=== PATIENT | female | born 1940 | race American Indian/Alaskan Native ===

== ENCOUNTER 2017-06-21 13:16 | Outpatient (CLI) | payer MEDICARE ==
--- NOTE | 2017-06-22 08:19 | XRay Report ---
XRAY LUMBAR SPINE WITH OBLIQUES 5 VIEWS: 06/21/17 13:16:00 CLINICAL: Low back pain. FINDINGS: Normal vertebral body height and alignment. L5-S1 disc space loss with large anterior and posterior osteophytes. L5-S1 endplate sclerosis. The rest of the disc spaces are intact. Smaller anterior osteophytes at L2-3, L3-4 and L4-5. Multilevel facet joint sclerosis. Multilevel neural foraminal narrowing. The pedicles are intact. Extensive calcification of the abdominal aorta. IMPRESSION: Multilevel degenerative disease, worse at L5-S1. Multilevel bilateral facet joint arthropathy and neural foraminal stenosis.
== END 2017-06-21 13:17 | disposition home or self-care (01) ==
LOC: XRAY 13:16
PROVIDERS: ATTEND Family Medicine
DX: M51.37 Other intervertebral disc degeneration, lumbosacral region (principal); M12.88 Other specific arthropathies, not elsewhere classified, other specified site; M25.78 Osteophyte, vertebrae; I11.0 Hypertensive heart disease with heart failure; I50.9 Heart failure, unspecified; I25.10 Atherosclerotic heart disease of native coronary artery without angina pectoris; E78.00 Pure hypercholesterolemia, unspecified; F17.200 Nicotine dependence, unspecified, uncomplicated
CPT/HCPCS: 72110

== ENCOUNTER 2018-01-10 18:21 | Emergency (ER) | payer MEDICARE ==
[2018-01-10 18:33] VITALS: BP 136/47
[2018-01-10 20:37] LABS: Basophils # (Auto) 0.1 K/mm3 (0.0-0.1); Basophils % (Auto) 0.9 % (0.0-1.8); Eosinophils # (Auto) 0.1 K/mm3 (0.0-0.4); Hematocrit 37.3 % (30.3-42.9); Hemoglobin 12.4 gm/dl (10.1-14.3); Lymphocytes # (Auto) 3.4 K/mm3 (1.2-5.4); Lymphocytes % (Auto) 46.4 % (13.4-35.0); Mean Corpuscular HGB Conc 33 % (30-34); Mean Corpuscular Hemoglobin 27 pg (28-32); Mean Corpuscular Volume 81 fl (79-97); Monocytes # (Auto) 0.4 K/mm3 (0.0-0.8); Monocytes % (Auto) 5.1 % (0.0-7.3); Platelet Count 250 K/mm3 (140-440); Red Cell Distribution Width 14.9 % (13.2-15.2)
[2018-01-10 20:51] LABS: Albumin 4.3 g/dL (3.9-5); Calcium 9.5 mg/dL (8.4-10.2)
--- NOTE | 2018-01-10 23:57 | Emergency Department Report ---
ED Abdominal Pain HPI - General Chief Complaint: Abdominal Pain Stated Complaint: LOWER ABD PAIN Time Seen by Provider: 01/10/18 22:22 Source: patient Mode of arrival: Ambulatory Limitations: No Limitations - History of Present Illness Initial Comments: 77-year-old female with a past medical history of CABG 4, chronic right leg swelling, GERD, renal insufficiency, he was cholecystectomy, hysterectomy, and umbilical hernia repair presents to the hospital with complaints of abdominal pain for several weeks worsening last several days. Pain is in the suprapubic and left lower quadrant, cramping, intermittent, moderate in intensity, and worse with palpation. She does have and loose stools on occasion. Last bowel movement this morning which was normal without gross blood or diarrhea. Patient does report some black discoloration of stool but took Pepto-Bismol 2 days ago. No complaints of nausea, vomiting, fever. Mild dysuria today reported. Patient also asking why she has chronic right leg swelling times several years. She states she has seen a director of kids but does not recall if she has ever received ultrasound of that extremity. Edema waxes and wanes with chronic intermittent pain worse with ambulation. - Related Data Home Medications Medication Instructions Recorded Confirmed Last Taken Amitriptyline [Elavil] 25 mg PO QHS 06/08/15 06/10/15 06/09/15 Atenolol [Tenormin] 25 mg PO DAILY 06/08/15 06/10/15 06/09/15 Meloxicam 15 mg PO QDAY 06/08/15 06/10/15 06/09/15 Potassium Chloride [Klor-Con] 20 meq PO QDAY 06/08/15 06/10/15 06/09/15 Ranitidine HCl [Zantac 150 MG TAB] 150 mg PO DAILY 06/08/15 06/10/15 06/09/15 Simvastatin [Zocor TAB] 20 mg PO QHS 06/08/15 06/10/15 06/09/15 Sucralfate 1 gm PO DAILY 06/08/15 06/10/15 06/09/15 Previous Rx's Medication Instructions Recorded Last Taken Type Docusate Sodium [Colace] 100 mg PO BID PRN #30 capsule 01/11/18 Unknown Rx Allergies Allergy/AdvReac Type Severity Reaction Status Date / Time codeine Allergy Vomiting Verified 09/27/13 18:50 Penicillins Allergy Rash Verified 09/27/13 18:50 antibiotics Allergy Unknown Uncoded 09/27/13 18:50 ED Review of Systems ROS: Stated complaint: LOWER ABD PAIN Other details as noted in HPI Comment: All other systems reviewed and negative Other: Constitutional: No fevers chills Eyes: No eye pain visual changes ENT: No ear pain or throat pain Neck: Denies pain Respiratory: Denies cough wheezing shortness of breath Cardiovascular: Denies chest pain, palpitations, syncope GI: As per HPI : Mild dysuria today Musculoskeletal:. Skin: Denies rash, lesions, erythema Neurologic: Denies headache, numbness, weakness Psychiatric: Denies suicidal ideation, hallucinations ED Past Medical Hx - Past Medical History Hx Hypertension: Yes Hx Heart Attack/AMI: Yes (X 1 2003, s/p CABG, no recent sympotms, ET limited due to leg pain) Hx GERD: Yes Hx Renal Disease: Yes (CRI) Hx Arthritis: Yes (FEET) Hx Seizures: No Hx Asthma: No Hx COPD: No - Surgical History Hx Open Heart Surgery: Yes (CABG X 4) Hx Cholecystectomy: Yes Additional Surgical History: hysterectomy, quad-bypass in 2003. Umbilical hernia repair - Social History Smoking Status: Current Every Day Smoker Substance Use Type: None - Medications Home Medications: Home Medications Medication Instructions Recorded Confirmed Last Taken Type Amitriptyline [Elavil] 25 mg PO QHS 06/08/15 06/10/15 06/09/15 History Atenolol [Tenormin] 25 mg PO DAILY 06/08/15 06/10/15 06/09/15 History Meloxicam 15 mg PO QDAY 06/08/15 06/10/15 06/09/15 History Potassium Chloride [Klor-Con] 20 meq PO QDAY 06/08/15 06/10/15 06/09/15 History Ranitidine HCl [Zantac 150 MG TAB] 150 mg PO DAILY 06/08/15 06/10/15 06/09/15 History Simvastatin [Zocor TAB] 20 mg PO QHS 06/08/15 06/10/15 06/09/15 History Sucralfate 1 gm PO DAILY 06/08/15 06/10/15 06/09/15 History Docusate Sodium [Colace] 100 mg PO BID PRN #30 capsule 03/16/18 Unknown Rx ED Physical Exam - General Limitations: No Limitations - Other Other exam information: General: No limitations, patient is alert in no acute distress Head exam: Atraumatic, normocephalic Eyes exam: Normal appearance ENT: Moist mucous membrane, normal oropharynx Neck exam: Normal inspection, full range of motion, no meningismus nontender Respiratory exam: Clear to auscultation bilateral, no wheezes, rales, crackles Cardiovascular: Normal rate and rhythm, normal heart sounds Abdomen: Soft, nondistended, suprapubic and left lower quadrant tenderness. No rebound or guarding Extremity: Full range of motion, right leg swelling including foot and ankle. Unable to palpate DP pulse but it is dopplerable. No warmth or erythema. Mild generalized tenderness to Left foot with palpable DP pulse. Back: Normal Inspection, full range of motion, no tenderness Neurologic: Alert, oriented x3, cranial nerves intact, no motor or sensory deficit Psychiatric: normal affect, normal mood Skin: Warm, dry, intact ED Course Vital Signs 01/10/18 18:31 Temperature 98.8 F Pulse Rate 62 Respiratory 16 Rate Blood Pressure 136/47 O2 Sat by Pulse 97 Oximetry ED Medical Decision Making - Lab Data Result diagrams: 01/10/18 20:22 01/10/18 20:22 Lab Results 01/10/18 01/10/18 01/11/18 Range/Units 20:22 20:22 00:12 WBC 7.3 (4.5-11.0) K/mm3 RBC 4.60 (3.65-5.03) M/mm3 Hgb 12.4 (10.1-14.3) gm/dl Hct 37.3 (30.3-42.9) % MCV 81 (79-97) fl MCH 27 L (28-32) pg MCHC 33 (30-34) % RDW 14.9 (13.2-15.2) % Plt Count 250 (140-440) K/mm3 Lymph % (Auto) 46.4 H (13.4-35.0) % Valley % (Auto) 5.1 (0.0-7.3) % Eos % (Auto) 1.0 (0.0-4.3) % Baso % (Auto) 0.9 (0.0-1.8) % Lymph # 3.4 (1.2-5.4) K/mm3 Valley # 0.4 (0.0-0.8) K/mm3 Eos # 0.1 (0.0-0.4) K/mm3 Baso # 0.1 (0.0-0.1) K/mm3 Seg Neutrophils % 46.6 (40.0-70.0) % Seg Neutrophils # 3.4 (1.8-7.7) K/mm3 Sodium 143 (137-145) mmol/L Potassium 4.0 (3.6-5.0) mmol/L Chloride 99.2 (98-107) mmol/L Carbon Dioxide 27 (22-30) mmol/L Anion Gap 21 mmol/L BUN 17 (7-17) mg/dL Creatinine 1.1 (0.7-1.2) mg/dL Estimated GFR 58 ml/min BUN/Creatinine Ratio 15 % Glucose 103 H (65-100) mg/dL Calcium 9.5 (8.4-10.2) mg/dL Total Bilirubin 0.20 (0.1-1.2) mg/dL AST 17 (5-40) units/L ALT 11 (7-56) units/L Alkaline Phosphatase 91 (35-129) units/L Total Protein 7.4 (6.3-8.2) g/dL Albumin 4.3 (3.9-5) g/dL Albumin/Globulin Ratio 1.4 % Urine Color Straw (Yellow) Urine Turbidity Clear (Clear) Urine pH 6.0 (5.0-7.0) Ur Specific [place] 1.026 (1.003-1.030) Urine Protein <15 mg/dl (Negative) mg/dL Urine Glucose (UA) Neg (Negative) mg/dL Urine Ketones Neg (Negative) mg/dL Urine Blood Neg (Negative) Urine Nitrite Neg (Negative) Urine Bilirubin Neg (Negative) Urine Urobilinogen < 2.0 (<2.0) mg/dL Ur Leukocyte Esterase Sm (Negative) Urine WBC (Auto) 2.0 (0.0-6.0) /HPF Urine RBC (Auto) 2.0 (0.0-6.0) /HPF - Radiology Data Radiology results: report reviewed Read by radiologist CT abdomen and pelvis IV contrast, moderate cardiomegaly. No acute intra- abdominal or pelvic pathology. Large amount of residual stool - Medical Decision Making Labs unremarkable. UA unremarkable. CT without acute findings incidental constipation noted. Patient apparently uses Pepto-Bismol frequently for crampy pain Pain is chronic and ongoing Outpatient follow-up with PMD and GI will be advised to patient. Patient had a colonoscopy last year and was advised to follow-up with her previous GI with a one provided Vascular follow-up will be encourage for right leg symptoms. Outpatient Doppler ordered for tomorrow. Patient. Does have a vascular doctor but cannot recall the name - Differential Diagnosis diverticulitis, UTI, chronic pain, cancer, DVT, lymphedema Critical Care Time: No Critical care attestation.: If time is entered above; I have spent that time in minutes in the direct care of this critically ill patient, excluding procedure time. ED Disposition Clinical Impression: Abdominal pain, Constipation, Right leg swelling Disposition: TO HOME OR SELFCARE Is pt being admited?: No Does the pt Need Aspirin: No Condition: Stable Instructions: Abdominal Pain (ED), Constipation (ED), Leg Edema (ED) Additional Instructions: Use Colace the stool softener as needed. Stop frequent use of Pepto-Bismol. If you have infrequent stools despite stopping Pepto-Bismol and using the Colace and you may take MiraLAX [id number] for constipation. Take Tylenol as needed for pain. It is very important that you follow with your primary care doctor and GI doctor for further workup and evaluation. No acute infection or surgical cause the pain has been identified this time. An outpatient ultrasound has been ordered for tomorrow to evaluate for your on going right leg swelling. If test is positive for blood clot you will be sent back to the ER for evaluation. Vascular follow up has also been suggested for further evaluation as well. Prescriptions: Docusate Sodium [Colace] 100 mg PO BID PRN #30 capsule PRN Reason: Constipation Referrals: PRIMARY CARE, [Primary Care Provider] - 3-5 Days DEANNA HOWELL MD [Staff Physician] - 3-5 Days (Vascular surgeon) MARTIN NICHOLS MD [Staff Physician] - 3-5 Days (GI doctor) Time of Disposition: 01:10
--- NOTE | 2018-01-11 00:05 | Cat Scan Report ---
FINAL REPORT PROCEDURE: CT ABDOMEN PELVIS W CON TECHNIQUE: Computerized axial tomography of the abdomen and pelvis was performed after the IV injection of iodinated nonionic contrast. HISTORY: suprapubic left lower quad pain COMPARISON: No prior studies are available for comparison. FINDINGS: There is moderate cardiomegaly. Liver, Spleen, pancreas and adrenal glands are within normal limits. Bilateral kidneys demonstrate uniform enhancement without hydronephrosis. Urinary bladder is minimally filled. Aorta is of normal caliber. There is no free fluid or free air. Status post cholecystectomy. Small bowel loops are within normal limits. Multiple colonic diverticula are noted without evidence of diverticulitis. Large amount of residual stool is noted. Appendix is not distinctly visualized. There are no inflammatory changes in the right lower quadrant. Small hiatal hernia is noted. Moderate degree degenerative changes are noted involving the lumbar spine. IMPRESSION: Moderate cardiomegaly No acute intra-abdominal or pelvic pathology Large amount of residual stool
[2018-01-11 00:35] LABS: Bilirubin,Urine NEG (Negative); Blood,Urine NEG (Negative); Color,Urine Straw (Yellow); Protein,Urine <15 mg/dL mg/dL (Negative); Urobilinogen,Urine < 2.0 mg/dL (<2.0)
== END 2018-01-11 01:29 | disposition home or self-care (01) ==
LOC: ED 18:21
DX: R10.9 Unspecified abdominal pain (principal); K59.00 Constipation, unspecified; M79.89 Other specified soft tissue disorders; I10 Essential (primary) hypertension; I25.2 Old myocardial infarction; K21.9 Gastro-esophageal reflux disease without esophagitis; F17.200 Nicotine dependence, unspecified, uncomplicated
CPT/HCPCS: 36415; 74177; 80053; 81001; 85025; 99284; Q9967

== ENCOUNTER 2020-02-02 09:11 | Outpatient (CLI) | payer MEDICARE ==
[2020-02-02 09:46] LABS: Hematocrit 41.3 % (30.3-42.9); Hemoglobin 13.6 gm/dl (10.1-14.3); Mean Corpuscular HGB Conc 33 % (30-34); Mean Corpuscular Volume 79 fl (79-97); Platelet Count 190 K/mm3 (140-440); Red Blood Count 5.24 M/mm3 (3.65-5.03); Red Cell Distribution Width 15.6 % (13.2-15.2)
[2020-02-02 09:52] LABS: ABG Base Excess 1.9 mmol/L (-2.0-3.0); ABG HCO3 26.4 mmol/L (20.0-26.0); ABG Methemoglobin 0.5 % (0.0-1.5); ABG Oxygen Saturation 95.9 % (95.0-99.0); ABG PCO2 41.2 mm Hg; ABG PH 7.426 pH Units (7.350-7.450); ABG PO2 75.3 mm Hg (80.0-90.0)
[2020-02-02 10:14] LABS: Albumin 4.2 g/dL (3.9-5); Calcium 9.7 mg/dL (8.4-10.2); Chol/HDL Ratio 2.52 %
--- NOTE | 2020-02-02 12:34 | Cat Scan Report ---
CTA CHEST WITH CONTRAST INDICATION : [place]: RIGHT ENLARGEMENT of heart sob 60 ml Omni 350. TECHNIQUE: Axial imaging performed through the chest, with contrast bolus timing set to maximize opa cification of the pulmonary arteries. Sagittal and coronal reformatted images. 3-plane MIP reformatte d images were obtained. All CT scans at this location are performed using CT dose reduction for ALAR A by means of automated exposure control. 60 mL of intravenous contrast administered. COMPARISON: None FINDINGS: Bolus: Contrast bolus timing is adequate. PTE: No pulmonary arterial filling defect is identified to suggest acute or chronic pulmonary embolu s. I question if the main pulmonary arteries are mildly dilated. The right main pulmonary artery [place] ures 2.7 cm in diameter. The left main pulmonary artery measures 2.8 cm in diameter. There are no adv anced CT findings of pulmonary arterial hypertension. Mediastinum: Mild to moderate cardiomegaly is present. Previous CABG changes are suspected. No peric ardial effusion. Moderate aortic arch calcifications are noted. The aorta appears normal caliber. No pathologic mediastinal adenopathy. Lungs: Mild chronic interstitial changes are noted in both lungs. No infiltrate, mass or advanced in terstitial lung disease. The tracheobronchial tree is unremarkable. Bones: Degenerative changes in the spine with nothing acute. Upper abdomen: Limited imaging of the upper abdomen shows nothing acute. IMPRESSION: No evidence for acute or chronic pulmonary embolus. Cardiomegaly. Lungs clear. Signer Name: Micha Ellison Jr, MD Signed: 02/02/2020 12:30 PM Workstation Name: [id number]
--- NOTE | 2020-02-02 12:54 | Vascular Lab Report ---
VL venous duplex LE BILAT INDICATION / CLINICAL INFORMATION: SWELLING OF LEGS. COMPARISON: None available. FINDINGS: No evidence of deep vein thrombosis in either leg. IMPRESSION: 1. Negative study. Signer Name: Alfred Salter MD Signed: 02/02/2020 12:49 PM Workstation Name: [id number]
--- NOTE | 2020-02-02 13:39 | XRay Report ---
CHEST 2 VIEWS INDICATION: COPD. COMPARISON: None FINDINGS: Support devices: None. Heart: Moderate cardiomegaly. Previous CABG changes are suspected. Lungs/pleura: The lungs are clear with no evidence for infiltrate, pleural fluid or pneumothorax. Mi ld hyperinflation is suggested. Additional findings: Moderate thoracic spondylosis. IMPRESSION: Cardiomegaly. Perhaps mild COPD. Lungs clear. Signer Name: Micha Ellison Jr, MD Signed: 02/02/2020 1:35 PM Workstation Name: [id number]
== END 2020-02-02 09:12 | disposition home or self-care (01) ==
LOC: CT 09:11
PROVIDERS: ATTEND Internal Medicine
DX: J44.9 Chronic obstructive pulmonary disease, unspecified (principal); I13.10 Hypertensive heart and chronic kidney disease without heart failure, with stage 1 through stage 4 chronic kidney disease, or unspecified chronic kidney disease; N18.9 Chronic kidney disease, unspecified; K21.9 Gastro-esophageal reflux disease without esophagitis; Z95.1 Presence of aortocoronary bypass graft
CPT/HCPCS: 36415; 36600; 71046; 71275; 80053; 80061; 82803; 84436; 84443; 85027; 93970; Q9967

== ENCOUNTER 2021-09-09 12:22 | Emergency (ER) | payer MEDICARE ==
[2021-09-09] MEDS ORDERED: SODIUM CHLORIDE 0.9% 500 ML 500 ML IV ONE (12:38)
[2021-09-09] MEDS ORDERED: ONDANSETRON 4 MG/2 ML INJ IV ONE (12:40)
--- NOTE | 2021-09-09 12:48 | Emergency Department Report ---
ED General Adult HPI - General Chief complaint: Dyspnea/Respdistress Stated complaint: SOB Time Seen by Provider: 09/09/21 12:32 Source: patient Mode of arrival: Ambulatory Limitations: No Limitations - History of Present Illness Initial comments: Patient is 81-year-old F Citizen Of [place] female with a past medical history of hypertension, chronic renal insufficiency, CABG x4 in 2003, GERD and chronic leg swelling who is presenting with multiple complaints. Patient states for the past 2 to 3 days she has had nausea vomiting diarrhea. Denies abdominal pain. States has been no blood in her vomit or stool. Patient also denies having fever but states she has had chills and also was "burning up all night" last night. Patient with some body aches in general but states that the majority of her pain is in her right ankle which is chronic. States has had a mild cough and mild shortness of breath. Patient was vaccinated against COVID-19 approximately 6 months ago. - Related Data Home Medications Medication Instructions Recorded Confirmed Last Taken Amitriptyline [Elavil] 25 mg PO QHS 06/08/15 06/10/15 06/09/15 Meloxicam 15 mg PO QDAY 06/08/15 06/10/15 06/09/15 Potassium Chloride [Klor-Con] 20 meq PO QDAY 06/08/15 06/10/15 06/09/15 Simvastatin (Nf) [Zocor TAB] 20 mg PO QHS 06/08/15 06/10/15 06/09/15 Sucralfate 1 gm PO DAILY 06/08/15 06/10/15 06/09/15 atenoloL [Tenormin] 25 mg PO DAILY 06/08/15 06/10/15 06/09/15 raNITIdine HCl [Zantac 150 MG TAB] 150 mg PO DAILY 06/08/15 06/10/15 06/09/15 Previous Rx's Medication Instructions Recorded Last Taken Type Docusate Sodium [Colace] 100 mg PO BID PRN #30 capsule 01/11/18 Unknown Rx Albuterol Mdi (or & Nicu Only) 2 puff IH QID PRN #1 inhalation 09/09/21 Unknown Rx [ProAir HFA Inhaler] Azithromycin [Zithromax Z-ANDREW] 250 mg PO DAILY #6 tablet 09/09/21 Unknown Rx Benzonatate [Tessalon Perles] 100 mg PO Q8HR #10 capsule 09/09/21 Unknown Rx Dexamethasone [Decadron] 6 mg PO DAILY #5 tablet 09/09/21 Unknown Rx Dicyclomine [Bentyl] 20 mg PO QID #10 tablet 09/09/21 Unknown Rx Diphenoxylate/Atropine [Lomotil] 1 tab PO Q4H PRN #10 tablet 09/09/21 Unknown Rx Ondansetron [Zofran Odt] 4 mg PO Q8HR #10 tab.rapdis 09/09/21 Unknown Rx Allergies Allergy/AdvReac Type Severity Reaction Status Date / Time codeine Allergy Vomiting Verified 09/27/13 18:50 Penicillins Allergy Rash Verified 09/27/13 18:50 antibiotics Allergy Unknown Uncoded 09/27/13 18:50 ED Review of Systems ROS: Stated complaint: SOB Other details as noted in HPI Comment: All other systems reviewed and negative ED Past Medical Hx - Past Medical History Previous Medical History?: Yes Hx Hypertension: Yes Hx Heart Attack/AMI: Yes (X 1 2003, s/p CABG, no recent sympotms, ET limited due to leg pain) Hx GERD: Yes Hx Renal Disease: Yes (CRI) Hx Arthritis: Yes (FEET) Hx Seizures: No Hx Asthma: No Hx COPD: No - Surgical History Past Surgical History?: Yes Hx Open Heart Surgery: Yes (CABG X 4) Hx Cholecystectomy: Yes Additional Surgical History: hysterectomy, quad-bypass in 2003. Umbilical hernia repair - Social History Smoking Status: Current Every Day Smoker Substance Use Type: None - Medications Home Medications: Home Medications Medication Instructions Recorded Confirmed Last Taken Type Amitriptyline [Elavil] 25 mg PO QHS 06/08/15 06/10/15 06/09/15 History Meloxicam 15 mg PO QDAY 06/08/15 06/10/15 06/09/15 History Potassium Chloride [Klor-Con] 20 meq PO QDAY 06/08/15 06/10/15 06/09/15 History Simvastatin (Nf) [Zocor TAB] 20 mg PO QHS 06/08/15 06/10/15 06/09/15 History Sucralfate 1 gm PO DAILY 06/08/15 06/10/15 06/09/15 History atenoloL [Tenormin] 25 mg PO DAILY 06/08/15 06/10/15 06/09/15 History raNITIdine HCl [Zantac 150 MG TAB] 150 mg PO DAILY 06/08/15 06/10/15 06/09/15 History Docusate Sodium [Colace] 100 mg PO BID PRN #30 capsule 01/11/18 Unknown Rx Albuterol Mdi (or & Nicu Only) 2 puff IH QID PRN #1 inhalation 09/09/21 Unknown Rx [ProAir HFA Inhaler] Azithromycin [Zithromax Z-ANDREW] 250 mg PO DAILY #6 tablet 09/09/21 Unknown Rx Benzonatate [Tessalon Perles] 100 mg PO Q8HR #10 capsule 09/09/21 Unknown Rx Dexamethasone [Decadron] 6 mg PO DAILY #5 tablet 09/09/21 Unknown Rx Dicyclomine [Bentyl] 20 mg PO QID #10 tablet 09/09/21 Unknown Rx Diphenoxylate/Atropine [Lomotil] 1 tab PO Q4H PRN #10 tablet 09/09/21 Unknown Rx Ondansetron [Zofran Odt] 4 mg PO Q8HR #10 tab.rapdis 09/09/21 Unknown Rx ED Physical Exam - General Limitations: No Limitations General appearance: alert, in no apparent distress - Head Head exam: Present: atraumatic, normocephalic - Eye Eye exam: Present: normal appearance - ENT ENT exam: Present: mucous membranes moist - Neck Neck exam: Present: normal inspection - Respiratory Respiratory exam: Present: normal lung sounds bilaterally. Absent: respiratory distress, wheezes, rales, rhonchi - Cardiovascular Cardiovascular Exam: Present: regular rate, irregular rhythm. Absent: systolic murmur, diastolic murmur, rubs, gallop - GI/Abdominal GI/Abdominal exam: Present: soft, normal bowel sounds. Absent: distended, tenderness, guarding, rebound - Extremities Exam Extremities exam: Present: normal inspection - Back Exam Back exam: Present: normal inspection - Neurological Exam Neurological exam: Present: alert, oriented X3 - Psychiatric Psychiatric exam: Present: normal affect, normal mood - Skin Skin exam: Present: warm, dry, intact, normal color. Absent: rash ED Course Vital Signs 09/09/21 09/09/21 09/09/21 12:27 13:31 13:45 Temperature 99.0 F Pulse Rate 55 L 53 L 50 L Respiratory 20 12 12 Rate Blood Pressure 176/87 166/84 166/70 O2 Sat by Pulse 99 99 100 Oximetry 09/09/21 09/09/21 09/09/21 14:00 14:15 14:19 Temperature 99 F Pulse Rate 53 L 51 L 51 L Respiratory 14 15 15 Rate Blood Pressure 156/72 156/72 156/72 O2 Sat by Pulse 99 100 100 Oximetry 09/09/21 14:24 Temperature Pulse Rate Respiratory 15 Rate Blood Pressure O2 Sat by Pulse 100 Oximetry ED Medical Decision Making - Lab Data Result diagrams: 09/09/21 12:47 09/09/21 12:47 Lab Results 09/09/21 09/09/21 09/09/21 Range/Units 12:47 12:47 12:47 WBC 4.2 L (4.5-11.0) K/mm3 RBC 5.08 H (3.65-5.03) M/mm3 Hgb 13.3 (10.1-14.3) gm/dl Hct 41.1 (30.3-42.9) % MCV 81 (79-97) fl MCH 26 L (28-32) pg MCHC 32 (30-34) % RDW 15.1 (13.2-15.2) % Plt Count 242 (140-440) K/mm3 Lymph % (Auto) 45.7 H (13.4-35.0) % Reagan % (Auto) 10.1 H (0.0-7.3) % Eos % (Auto) 1.1 (0.0-4.3) % Baso % (Auto) 1.0 (0.0-1.8) % Lymph # (Auto) 1.9 (1.2-5.4) K/mm3 [place] # (Auto) 0.4 (0.0-0.8) K/mm3 Eos # (Auto) 0.0 (0.0-0.4) K/mm3 Baso # (Auto) 0.0 (0.0-0.1) K/mm3 Seg Neutrophils % 42.1 (40.0-70.0) % Seg Neutrophils # 1.8 (1.8-7.7) K/mm3 PT (12.2-14.9) Sec. INR (0.87-1.13) APTT (24.2-36.6) Sec. Sodium 141 (137-145) mmol/L Potassium 3.2 L (3.6-5.0) mmol/L Chloride 101.1 (98-107) mmol/L Carbon Dioxide 26 (22-30) mmol/L Anion Gap 17 mmol/L BUN 14 (7-17) mg/dL Creatinine 1.1 (0.6-1.2) mg/dL Estimated GFR 57 ml/min BUN/Creatinine Ratio 13 % Glucose 132 H (65-100) mg/dL Lactic Acid (0.7-2.0) mmol/L Calcium 9.0 (8.4-10.2) mg/dL Total Bilirubin 0.30 (0.1-1.2) mg/dL AST 31 (5-40) units/L ALT 23 (7-56) units/L Alkaline Phosphatase 123 (35-129) units/L Troponin T < 0.010 (0.00-0.029) ng/mL NT-Pro-B Natriuret Pep (0-900) pg/mL Total Protein 7.5 (6.3-8.2) g/dL Albumin 3.9 (3.9-5) g/dL Albumin/Globulin Ratio 1.1 % 09/09/21 09/09/21 09/09/21 Range/Units 12:47 12:47 12:47 WBC (4.5-11.0) K/mm3 RBC (3.65-5.03) M/mm3 Hgb (10.1-14.3) gm/dl Hct (30.3-42.9) % MCV (79-97) fl MCH (28-32) pg MCHC (30-34) % RDW (13.2-15.2) % Plt Count (140-440) K/mm3 Lymph % (Auto) (13.4-35.0) % Reagan % (Auto) (0.0-7.3) % Eos % (Auto) (0.0-4.3) % Baso % (Auto) (0.0-1.8) % Lymph # (Auto) (1.2-5.4) K/mm3 Reagan # (Auto) (0.0-0.8) K/mm3 Eos # (Auto) (0.0-0.4) K/mm3 Baso # (Auto) (0.0-0.1) K/mm3 Seg Neutrophils % (40.0-70.0) % Seg Neutrophils # (1.8-7.7) K/mm3 PT 15.8 H (12.2-14.9) Sec. INR 1.14 H (0.87-1.13) APTT 28.0 (24.2-36.6) Sec. Sodium (137-145) mmol/L Potassium (3.6-5.0) mmol/L Chloride (98-107) mmol/L Carbon Dioxide (22-30) mmol/L Anion Gap mmol/L BUN (7-17) mg/dL Creatinine (0.6-1.2) mg/dL Estimated GFR ml/min BUN/Creatinine Ratio % Glucose (65-100) mg/dL Lactic Acid 1.50 (0.7-2.0) mmol/L Calcium (8.4-10.2) mg/dL Total Bilirubin (0.1-1.2) mg/dL AST (5-40) units/L ALT (7-56) units/L Alkaline Phosphatase (35-129) units/L Troponin T (0.00-0.029) ng/mL NT-Pro-B Natriuret Pep 1244 H (0-900) pg/mL Total Protein (6.3-8.2) g/dL Albumin (3.9-5) g/dL Albumin/Globulin Ratio % 11/12/21 Range/Units 13:10 WBC (4.5-11.0) K/mm3 RBC (3.65-5.03) M/mm3 Hgb (10.1-14.3) gm/dl Hct (30.3-42.9) % MCV (79-97) fl MCH (28-32) pg MCHC (30-34) % RDW (13.2-15.2) % Plt Count (140-440) K/mm3 Lymph % (Auto) (13.4-35.0) % Reagan % (Auto) (0.0-7.3) % Eos % (Auto) (0.0-4.3) % Baso % (Auto) (0.0-1.8) % Lymph # (Auto) (1.2-5.4) K/mm3 Reagan # (Auto) (0.0-0.8) K/mm3 Eos # (Auto) (0.0-0.4) K/mm3 Baso # (Auto) (0.0-0.1) K/mm3 Seg Neutrophils % (40.0-70.0) % Seg Neutrophils # (1.8-7.7) K/mm3 PT (12.2-14.9) Sec. INR (0.87-1.13) APTT (24.2-36.6) Sec. Sodium (137-145) mmol/L Potassium (3.6-5.0) mmol/L Chloride (98-107) mmol/L Carbon Dioxide (22-30) mmol/L Anion Gap mmol/L BUN (7-17) mg/dL Creatinine (0.6-1.2) mg/dL Estimated GFR ml/min BUN/Creatinine Ratio % Glucose (65-100) mg/dL Lactic Acid 1.50 (0.7-2.0) mmol/L Calcium (8.4-10.2) mg/dL Total Bilirubin (0.1-1.2) mg/dL AST (5-40) units/L ALT (7-56) units/L Alkaline Phosphatase (35-129) units/L Troponin T (0.00-0.029) ng/mL NT-Pro-B Natriuret Pep (0-900) pg/mL Total Protein (6.3-8.2) g/dL Albumin (3.9-5) g/dL Albumin/Globulin Ratio % - EKG Data -: EKG Interpreted by Pr - EKG Data 09/09/21 15:28 EKG shows atrial flutter rate of 56. Appears to be a 4-1 AV block. Evidence of LVH. [place] is normal other intervals are normal. No ST segment elevation or depressions. Time interpretation 1234 - Radiology Data [facility] [address] [place] [address] XRay Report Signed Patient: JANAY KATZ MR#: [id number] : 1940 Acct:[id number] Age/Sex: 81 / F ADM Date: 09/09/21 Loc: ED Attending Dr: Ordering Physician: DWAIN REBOLLAR MD Date of Service: 09/09/21 Procedure(s): XR chest 1V ap Accession Number(s): [id number] cc: DWAIN REBOLLAR MD Fluoro Time In Minutes: XR chest 1V ap INDICATION / CLINICAL INFORMATION: dyspnea COMPARISON: 02/02/2020 FINDINGS: SUPPORT DEVICES: None. HEART / MEDIASTINUM: Cardiac silhouette is enlarged. LUNGS / PLEURA: Lungs are clear. Costophrenic sulci are sharp. No pneumothorax. ADDITIONAL FINDINGS: No significant additional findings. IMPRESSION: 1. Cardiomegaly. No acute findings. Signer Name: Mika Harrison MD Signed: 09/09/2021 1:41 PM Workstation Name: [id number] Transcribed By: CS Dictated By: Mika Harrison MD Electronically Authenticated By: Mika Harrison MD Signed Date/Time: 09/09/21 1341 - Medical Decision Making Patient is oxygen saturation within normal limits. No infiltrates found. Patient exhibiting symptoms of a viral syndrome. Though the patient has had COVID-19 shots it has been approximately 6 to 7 months and the patient likely is due for booster. Did not see any evidence to admit the patient at this time. Patient will be discharged home. Give medication for symptomatic relief. S uggest the patient get outpatient testing for COVID-19. Critical care attestation.: If time is entered above; I have spent that time in minutes in the direct care of this critically ill patient, excluding procedure time. ED Disposition Clinical Impression: Viral syndrome, Suspected COVID-19 virus infection Disposition: 01 HOME / SELF CARE / HOMELESS Is pt being admited?: No Does the pt Need Aspirin: No Condition: Stable Instructions: Viral Illness, Adult Referrals: PRIMARY CARE, [Primary Care Provider] - 3-5 Days Time of Disposition: 15:32
[2021-09-09 13:13] LABS: Eosinophils % (Auto) 1.1 % (0.0-4.3); Hematocrit 41.1 % (30.3-42.9); Hemoglobin 13.3 gm/dl (10.1-14.3); Lymphocytes # (Auto) 1.9 K/mm3 (1.2-5.4); Lymphocytes % (Auto) 45.7 % (13.4-35.0); Mean Corpuscular HGB Conc 32 % (30-34); Mean Corpuscular Volume 81 fl (79-97); Monocytes # (Auto) 0.4 K/mm3 (0.0-0.8); Monocytes % (Auto) 10.1 % (0.0-7.3); Platelet Count 242 K/mm3 (140-440); Red Blood Count 5.08 M/mm3 (3.65-5.03); Red Cell Distribution Width 15.1 % (13.2-15.2)
[2021-09-09 13:24] LABS: INR 1.14 (0.87-1.13)
[2021-09-09 13:41] LABS: Albumin 3.9 g/dL (3.9-5)
--- NOTE | 2021-09-09 13:45 | XRay Report ---
XR chest 1V ap INDICATION / CLINICAL INFORMATION: dyspnea COMPARISON: 02/02/2020 FINDINGS: SUPPORT DEVICES: None. HEART / MEDIASTINUM: Cardiac silhouette is enlarged. LUNGS / PLEURA: Lungs are clear. Costophrenic sulci are sharp. No pneumothorax. ADDITIONAL FINDINGS: No significant additional findings. IMPRESSION: 1. Cardiomegaly. No acute findings. Signer Name: Mika Harrison MD Signed: 09/09/2021 1:41 PM Workstation Name: [id number]
[2021-09-09 16:07] VITALS: BP 166/70
--- NOTE | 2021-09-13 10:45 | Electrocardiograph Report ---
[facility] Test Date: 2021-09-09 Test Time: 12:33:02 Pat Name: JANAY KATZ Department: Room: Gender: F Social Science Manager: BREA : 1940 Requested By: DWAIN REBOLLAR Order Number: [id number] Reading MD: Jacobo Huston Measurements Intervals [place] Rate: 54 P: [place]: QRS: -22 QRSD: 79 T: 174 QT: 383 QTc: 377 Interpretive Statements Atrial flutter with varied AV block, Left ventricular hypertrophy Nonspecific T abnormalities, diffuse leads No previous ECG available for comparison Electronically Signed On 09-13-2021 10:44:50 EST by Jacobo Huston
--- NOTE | 2021-09-13 10:45 | Electrocardiograph Report ---
[facility] Test Date: 2021-09-09 Test Time: 12:34:57 Pat Name: JANAY KATZ Department: Room: Gender: F Office Communication Professor: BREA : 1940 Requested By: DWAIN REBOLLAR Order Number: [id number] Reading MD: Jacobo Huston Measurements Intervals [place] Rate: 56 P: [place]: QRS: -22 QRSD: 88 T: 230 QT: 419 QTc: 404 Interpretive Statements Atrial flutter with predominant 4:1 AV block LVH with secondary repolarization abnormality Compared to ECG 09/09/2021 12:33:02 No significant change Electronically Signed On 09-13-2021 10:45:11 EST by Jacobo Huston
== END 2021-09-09 16:07 | disposition home or self-care (01) ==
LOC: ED 12:22
DX: B34.9 Viral infection, unspecified (principal); Z20.822 Contact with and (suspected) exposure to COVID-19; R11.2 Nausea with vomiting, unspecified; R19.7 Diarrhea, unspecified; I10 Essential (primary) hypertension; K21.9 Gastro-esophageal reflux disease without esophagitis; M19.90 Unspecified osteoarthritis, unspecified site; R79.1 Abnormal coagulation profile; F17.200 Nicotine dependence, unspecified, uncomplicated; Z90.49 Acquired absence of other specified parts of digestive tract; Z95.1 Presence of aortocoronary bypass graft; Z88.0 Allergy status to penicillin; Z88.5 Allergy status to narcotic agent; Z79.899 Other long term (current) drug therapy
CPT/HCPCS: 36415; 71045; 80053; 82140; 83880; 84484; 85025; 85610; 85730; 87040; 93005; 96374; 99284; J2405; J7040; 96361

== ENCOUNTER 2021-11-15 11:33 | Emergency (ER) | payer MEDICARE ==
[2021-11-15] MEDS ORDERED: SODIUM CHLORIDE 0.9% 500 ML 500 ML IV ONE (12:50)
[2021-11-15] MEDS ORDERED: ONDANSETRON 4 MG/2 ML INJ IV ONE (12:51)
[2021-11-15] MEDS ORDERED: LOPERAMIDE 2 MG CAP PO ONE (12:51)
--- NOTE | 2021-11-15 13:02 | Emergency Department Report ---
HPI - General Chief Complaint: Nausea/Vomiting/Diarrhea Time Seen by Provider: 11/15/21 12:06 - HPI HPI: 81-year-old -[place] female presents to the emergency department with a complaint of a 6-day history of being "sick." She complains of a mixed dry and productive cough, body aches, diarrhea and subjective fever. She is vaccinated against COVID-19. Her son is currently being seen here for some similar viral symptoms. She has a past medical history of hypertension, coronary artery disease with previous SC and CABG. She has not taken anything for symptoms prior to presentation today. Her primary care physician is a Dr. Zaira Reyes. No recent travel. ED Past Medical Hx - Past Medical History Hx Hypertension: Yes Hx Heart Attack/AMI: Yes (X 1 2003, s/p CABG, no recent sympotms, ET limited due to leg pain) Hx GERD: Yes Hx Renal Disease: Yes (CRI) Hx Arthritis: Yes (FEET) Hx Seizures: No Hx Asthma: No Hx COPD: No - Surgical History Hx Open Heart Surgery: Yes (CABG X 4) Hx Cholecystectomy: Yes Additional Surgical History: hysterectomy, quad-bypass in 2003. Umbilical hernia repair - Social History Smoking Status: Current Every Day Smoker Substance Use Type: None - Medications Home Medications: Home Medications Medication Instructions Recorded Confirmed Last Taken Type Amitriptyline [Elavil] 25 mg PO QHS 06/08/15 06/10/15 06/09/15 History Meloxicam 15 mg PO QDAY 06/08/15 06/10/15 06/09/15 History Potassium Chloride [Klor-Con] 20 meq PO QDAY 06/08/15 06/10/15 06/09/15 History Simvastatin (Nf) [Zocor TAB] 20 mg PO QHS 06/08/15 06/10/15 06/09/15 History Sucralfate 1 gm PO DAILY 06/08/15 06/10/15 06/09/15 History atenoloL [Tenormin] 25 mg PO DAILY 06/08/15 06/10/15 06/09/15 History raNITIdine HCl [Zantac 150 MG TAB] 150 mg PO DAILY 06/08/15 06/10/15 06/09/15 Hi story Docusate Sodium [Colace] 100 mg PO BID PRN #30 capsule 01/11/18 Unknown Rx Albuterol Mdi (or & Nicu Only) 2 puff IH QID PRN #1 inhalation 09/09/21 Unknown Rx [ProAir HFA Inhaler] Azithromycin [Zithromax Z-ANDREW] 250 mg PO DAILY #6 tablet 09/09/21 Unknown Rx Benzonatate [Tessalon Perles] 100 mg PO Q8HR #10 capsule 09/09/21 Unknown Rx Dexamethasone [Decadron] 6 mg PO DAILY #5 tablet 09/09/21 Unknown Rx Dicyclomine [Bentyl] 20 mg PO QID #10 tablet 09/09/21 Unknown Rx Diphenoxylate/Atropine [Lomotil] 1 tab PO Q4H PRN #10 tablet 09/09/21 Unknown Rx Ondansetron [Zofran Odt] 4 mg PO Q8HR #10 tab.rapdis 09/09/21 Unknown Rx ED Review of Systems ROS: Stated complaint: MCKEON, DIARRHEA, SOB Other details as noted in HPI Comment: All other systems reviewed and negative Constitutional: denies: chills, fever Eyes: denies: eye pain, vision change ENT: denies: ear pain, throat pain Respiratory: cough. denies: wheezing Cardiovascular: denies: chest pain, palpitations Gastrointestinal: abdominal pain, diarrhea. denies: nausea, vomiting Genitourinary: denies: dysuria, discharge Musculoskeletal: myalgia. denies: joint swelling Skin: denies: rash, lesions Neurological: denies: headache, weakness Physical Exam - Physical Exam Physical Exam: GENERAL: The patient is well-developed well-nourished. HENT: Normocephalic. Atraumatic. Patient has moist mucous membranes. EYES: Extraocular motions are intact. NECK: Supple. Trachea is midline. CHEST/LUNGS: Clear to auscultation. No cough heard during examination. No tachypnea or accessory muscle use. HEART/CARDIOVASCULAR: Regular. There is no tachycardia. There is no murmur. ABDOMEN: Abdomen is soft, nontender. Patient has normal bowel sounds. There is no abdominal distention. SKIN: Skin is warm and dry. NEURO: The patient is awake, alert, and oriented. The patient is cooperative. The patient has no focal neurologic deficits. Normal speech. MUSCULOSKELETAL: There is no tenderness or deformity. There is no limitation range of motion. ED Medical Decision Making - Lab Data Result diagrams: 11/15/21 12:57 11/15/21 12:57 Lab Results 11/15/21 11/15/21 11/15/21 Range/Units 12:57 12:57 14:34 WBC 4.0 L (4.5-11.0) K/mm3 RBC 4.80 (3.65-5.03) M/mm3 Hgb 12.6 (10.1-14.3) gm/dl Hct 38.4 (30.3-42.9) % MCV 80 (79-97) fl MCH 26 L (28-32) pg MCHC 33 (30-34) % RDW 14.8 (13.2-15.2) % Plt Count 251 (140-440) K/mm3 Lymph % (Auto) 38.4 H (13.4-35.0) % [place] % (Auto) 9.8 H (0.0-7.3) % Eos % (Auto) 0.5 (0.0-4.3) % Baso % (Auto) 0.8 (0.0-1.8) % Lymph # (Auto) 1.6 (1.2-5.4) K/mm3 [place] # (Auto) 0.4 (0.0-0.8) K/mm3 Eos # (Auto) 0.0 (0.0-0.4) K/mm3 Baso # (Auto) 0.0 (0.0-0.1) K/mm3 Seg Neutrophils % 50.5 (40.0-70.0) % Seg Neutrophils # 2.0 (1.8-7.7) K/mm3 Sodium 138 (137-145) mmol/L Potassium 3.0 L (3.6-5.0) mmol/L Chloride 99.1 (98-107) mmol/L Carbon Dioxide 27 (22-30) mmol/L Anion Gap 15 mmol/L BUN 17 (7-17) mg/dL Creatinine 0.9 (0.6-1.2) mg/dL Estimated GFR > 60 ml/min BUN/Creatinine Ratio 19 % Glucose 148 H (65-100) mg/dL Calcium 9.3 (8.4-10.2) mg/dL Total Bilirubin 0.40 (0.1-1.2) mg/dL AST 24 (5-40) units/L ALT 15 (7-56) units/L Alkaline Phosphatase 113 (35-129) units/L Troponin T < 0.010 (0.00-0.029) ng/mL Total Protein 7.6 (6.3-8.2) g/dL Albumin 4.1 (3.9-5) g/dL Albumin/Globulin Ratio 1.2 % Lipase 33 (13-60) units/L Urine Color Yellow (Yellow) Urine Turbidity Clear (Clear) Urine pH 6.0 (5.0-7.0) Ur Specific [place] 1.015 (1.003-1.030) Urine Protein 100 mg/dl (Negative) mg/dL Urine Glucose (UA) Neg (Negative) mg/dL Urine Ketones Neg (Negative) mg/dL Urine Blood Neg (Negative) Urine Nitrite Neg (Negative) Urine Bilirubin Neg (Negative) Urine Urobilinogen < 2.0 (<2.0) mg/dL Ur Leukocyte Esterase Mod (Negative) Urine WBC (Auto) 2.0 (0.0-6.0) /HPF Urine RBC (Auto) 1.0 (0.0-6.0) /HPF U Epithel Cells (Auto) 8.0 (0-13.0) /HPF Urine Bacteria (Auto) 1+ (Negative) /HPF Urine Mucus Few /HPF - Radiology Data Radiology results: image reviewed interpreted by me: Chest x-ray does not show any acute process. There are no pleural effusions, o bvious pneumonia and there is no pneumothorax. No widened mediastinum. Abdominal x-ray shows nonspecific nonobstructive bowel gas. No free air. - Medical Decision Making This patient presents to the emergency department with a complaint of a 5 to 6- day history of some diarrhea, mixed dry and productive cough, body aches, and subjective fever. On examination she has normal sounding heart and lungs to auscultation and does not appear in any respiratory or acute distress. Abdomen is soft, nondistended and nontoxic in appearance. Chest x-ray does not show any pneumonia, pleural effusions, pneumothorax, widened mediastinum, or any other acute process. Abdominal x-ray shows nonspecific nonobstructive bowel gas, and no free air. Labs have been unremarkable including CBC, metabolic panel, negative troponin, except for some mild hypokalemia with a potassium level of 3. The patient was given potassium chloride. Vital signs reassuring including being afebrile. For all these reasons the patient appears safe for discharge home. She appears to have a nonspecific viral syndrome. We discussed seeking outpatient COVID-19 testing and following up with primary care. Critical Care Time: No Critical care attestation.: If time is entered above; I have spent that time in minutes in the direct care of this critically ill patient, excluding procedure time. ED Disposition Clinical Impression: Viral syndrome, Hypokalemia Diarrhea Qualifiers: Diarrhea type: unspecified type Qualified Code(s): R19.7 - Diarrhea, unspecified Disposition: 01 HOME / SELF CARE / HOMELESS Is pt being admited?: No Condition: Stable Instructions: Diarrhea, Adult, Hypokalemia, Viral Illness, Adult Additional Instructions: Please follow-up with your primary care physician in the next few days. Increase your oral rehydration. Return to the emergency department with any worsening of your symptoms, new or concerning symptoms not addressed during this current emergency department visi t, or with any acute distress. Referrals: ZAIRA REYES JR, MD [Referring] - 2-3 Days Time of Disposition: 16:01
[2021-11-15 13:27] LABS: Basophils % (Auto) 0.8 % (0.0-1.8); Eosinophils % (Auto) 0.5 % (0.0-4.3); Hematocrit 38.4 % (30.3-42.9); Hemoglobin 12.6 gm/dl (10.1-14.3); Lymphocytes # (Auto) 1.6 K/mm3 (1.2-5.4); Lymphocytes % (Auto) 38.4 % (13.4-35.0); Mean Corpuscular HGB Conc 33 % (30-34); Mean Corpuscular Volume 80 fl (79-97); Monocytes # (Auto) 0.4 K/mm3 (0.0-0.8); Monocytes % (Auto) 9.8 % (0.0-7.3); Platelet Count 251 K/mm3 (140-440); Red Cell Distribution Width 14.8 % (13.2-15.2)
--- NOTE | 2021-11-15 13:47 | XRay Report ---
CHEST AND ABDOMINAL SERIES HISTORY: Abdominal pain. Cough. COMPARISON: Chest x-ray 09/09/2021. Chest 1 view: Prominent cardiomegaly is unchanged status post previous median sternotomy. Two-view abdomen: Gas is scattered throughout the abdomen in a nonobstructive fashion. Negative for f ree air or suspicious calcification. Signer Name: Bradly Meyer MD Signed: 11/15/2021 1:42 PM Workstation Name: [id number]
[2021-11-15 13:57] LABS: Alanine Aminotransferase 15 units/L (7-56); Albumin 4.1 g/dL (3.9-5); BUN/Creatinine Ratio 19; Blood Urea Nitrogen 17 mg/dL (7-17); Calcium 9.3 mg/dL (8.4-10.2); Hemolysis Index 10
[2021-11-15] MEDS ORDERED: POTASSIUM CHLORIDE ER 20 MEQ TAB PO ONE (14:03)
[2021-11-15 15:15] LABS: Bacteria,Urine 1+ /HPF (Negative); Bilirubin,Urine NEG (Negative); Blood,Urine NEG (Negative); Color,Urine Yellow (Yellow); Mucus,Urine FEW /HPF; Urobilinogen,Urine < 2.0 mg/dL (<2.0)
[2021-11-15 16:25] VITALS: BP 194/83
== END 2021-11-15 16:25 | disposition home or self-care (01) ==
LOC: ED 11:33
DX: B34.9 Viral infection, unspecified (principal); R19.7 Diarrhea, unspecified; E87.6 Hypokalemia; I11.0 Hypertensive heart disease with heart failure; I21.9 Acute myocardial infarction, unspecified; K21.9 Gastro-esophageal reflux disease without esophagitis; N28.9 Disorder of kidney and ureter, unspecified; M19.079 Primary osteoarthritis, unspecified ankle and foot; Z98.890 Other specified postprocedural states; Z90.49 Acquired absence of other specified parts of digestive tract; Z90.710 Acquired absence of both cervix and uterus; F17.200 Nicotine dependence, unspecified, uncomplicated
CPT/HCPCS: 36415; 74022; 80053; 81001; 83690; 84484; 85025; 99284; J2405; J7040